=== PATIENT | female | born 1990 | race Hispanic/Latino ===

== ENCOUNTER 2024-06-18 22:20 | Emergency (ER) | payer OTHER ==
--- OUTSIDE RECORDS SUMMARY | 2024-06-18 22:23 | XMS REPORT | Continuity of Care Document ---
Author Name Unknown Address [address] [facility] [address] [place] [address] [facility] Address [address] [facility]. [address] [place] [address] Care Team Providers Care Quality Control Projectionist Name Role Phone Zachary Salmeron Md Primary Care Physician MANDI SAEED Attending Clinician Unav ADELAIDA Rushing Attending Clinician Unavailable DENISE WOODRUFF Attending Clinician Unavail able EDEN BLANK Attending Clinician Unavailable JORDY PHILLIPS Attending Clinician Unavailable LAB45 Attending Clinician Unavailable ANAMARIA LAZO Attending Clinician Unavailable LAB03 Attending Clinician Unavailable LAB90 Attending Clinician Unavailable KELLI PINEDA MEDICAL Attending Clinicia felicity Unavailable CARLY LICONA Attending Clinician Unavailable LORETTA ERICKSON Attending Clinician Unavailable Payers Payer Name Policy Type Policy Number Effective Date Expirati on Date Source [facility] [place] [facility] [id number] 2022 00:00:00 [employer] MP [facility] O [facility] 94 ON 9 [id number] 2023 00:00:00 Social History Social Habit Start Date Stop Date Quantity Comments Source Sexual orientation Mora Sarkar - External ASSERTION Not Kelli Sarkar - External Alcoholic beverage intake 2024-02-08 00:00:00 2024-02-08 00:00:00 Lifetime non-drinker (finding) Kelli Sarkar - External History of Social function 2023-12-15 00:00:00 2023-12-15 00:00:00 Kelli Sarkar - External Tobacco use and exposure 2023-10-30 00:00:00 2023-10-30 00:00:00 Smokeless tobacco non-user Kelli Sarkar - External Sex 2023-10-27 15:18:24 2023-10-27 15:18:24 Female (finding) Kelli Sarkar - External Alcohol intake 2022-07-04 00:00:00 2022-07-04 00:00:00 Lifetime non-drinker (finding) [facility] Sex assigned at 1990 00:00:00 1990 00:00:00 Kelli Sarkar - External Smoking Status Start Date Stop Date Source Never smoked tobacco Kelli Sarkar - External Medications Ordered Medication Name Filled Medication Name Start Date Stop Date Current Medication? Ordering Clinician Indication Dosage Frequency Signature (SIG) Comments Components Source IRON, FERROUS SULFATE, OR 2023-02 11:14: 09 Yes 65mg Take 65 mg by mouth. Kelli kruger Amoxicillin -Pot Clavulanate 875-125 MG oral Tablet 2023-02 00:00: 00 Yes [id number] 1{tbl} Q.5D Take 1 tablet by mouth 2 times daily. Kelli Mendoza l IRON, FERROUS SULFATE, OR 2023-02 11:03: 41 Yes 65mg Take 65 mg by mouth. Kelli kruger methIMAzole 10 MG oral Tablet 11-01 00:00: 00 Yes [id number] 40mg QD Take 4 tablets (40 mg total) by mouth daily. Kelli kruger Metoprolol Tartrate (LOPRESSOR) 25 MG oral Tablet 10-29 00:00: 00 Yes [id number] 25mg Q.5D Take 1 tablet (25 mg total) by mouth 2 times daily. Kelli kruger clindamycin (Cleocin) 300 MG capsule 07-04 00:00: 00 07-12 04:59 :00 No [id number] 300mg Q.25D Take 1 capsule (300 mg total) by mouth in the morning and 1 capsule (300 mg total) at noon and 1 capsule (300 mg total) in the evening and 1 capsule (300 mg total) before bedtime. Do all this for 7 days. [facility] Vital Signs Vital Name Observation Time Observation Value Comments S ource Oxygen saturation in Arterial blood by Pulse oximetry 2024-02-08 17:09:00 98 /min Kelli Seybo ld - External Systolic blood pressure 2024-02-08 17:09:00 126 mm[Hg] Kelli Seybo ld - External Diastolic blood pressure 2024-02-08 17:09:00 82 mm[Hg] Kelli Seybo ld - External Heart rate 2024-02-08 17:09:00 86 /min Kelse y Seybold - External Body temperature 2024-02-08 17:09:00 36.72 Berenice Kelli Seybold - External Respiratory rate 2024-02-08 17:09:00 18 /min Kelli Seybold - External Body height 2024-02-08 17:09:00 162.6 cm Radha ey Seybold - External Body weight 2024-02-08 17:09:00 86.637 kg Radha ey Seybold - External BMI 2024-02-08 17:09:00 32.79 kg/m2 Radha ey Seybold - External Systolic blood pressure 2024-01-05 17:01:00 132 mm[Hg] Kelli Seybo ld - External Diastolic blood pressure 2024-01-05 17:01:00 80 mm[Hg] Kelli Seybo ld - External Heart rate 2024-01-05 17:01:00 88 /min Kelse y Seybold - External Respiratory rate 2024-01-05 17:01:00 16 /min Kelli Seybold - External Body height 2024-01-05 17:01:00 162.6 cm Radha ey Seybold - External Body weight 2024-01-05 17:01:00 88.451 kg Radha ey Seybold - External BMI 2024-01-05 17:01:00 33.47 kg/m2 Radha ey Seybold - External Systolic blood pressure 2023-12-15 16:07:00 120 mm[Hg] Kelli Seybo ld - External Diastolic blood pressure 2023-12-15 16:07:00 70 mm[Hg] Kelli Seybo ld - External Heart rate 2023-12-15 16:07:00 108 /min Kelse y Seybold - External Body temperature 2023-12-15 16:07:00 36.72 Berenice Kelli Seybold - External Respiratory rate 2023-12-15 16:07:00 24 /min Kelli Seybold - External Body height 2023-12-15 16:07:00 162.6 cm Radha ey Seybold - External Body weight 2023-12-15 16:07:00 87.091 kg Radha ey Seybold - External BMI 2023-12-15 16:07:00 32.96 kg/m2 Radha ey Seybold - External Systolic blood pressure 2023-11-02 20:31:00 126 mm[Hg] Kelli Seybo ld - External Diastolic blood pressure 2023-11-02 20:31:00 78 mm[Hg] Kelli Seybo ld - External Heart rate 2023-11-02 20:31:00 88 /min Endyse y Seybold - External Respiratory rate 2023-11-02 20:31:00 16 /min Kelli Seybold - External Body height 2023-11-02 20:31:00 162.6 cm Radha ey Seybold - External Body weight 2023-11-02 20:31:00 86.909 kg Radha ey Seybold - External BMI 2023-11-02 20:31:00 32.89 kg/m2 Radha ey Seybold - External Systolic blood pressure 2023-10-30 20:18:00 150 mm[Hg] Kelli Seybo ld - External Diastolic blood pressure 2023-10-30 20:18:00 80 mm[Hg] Kelli Seybo ld - External Heart rate 2023-10-30 20:18:00 124 /min Endyse y Seybold - External Body temperature 2023-10-30 20:18:00 36.78 Berenice Kelli Seybold - External Respiratory rate 2023-10-30 20:18:00 24 /min Kelli Seybold - External Body height 2023-10-30 20:18:00 162.6 cm Radha ey Seybold - External Body weight 2023-10-30 20:18:00 86.637 kg Radha ey Seybold - External BMI 2023-10-30 20:18:00 32.79 kg/m2 Radha ey Seybold - External Oxygen saturation in Arterial blood by Pulse oximetry 2023-10-30 20:18:00 99 /min Kelli Vail ld - External Systolic blood pressure 2022-07-04 15:21:00 132 mm[Hg] [facility] Diastolic blood pressure 2022-07-04 15:21:00 87 mm[Hg] [facility] Heart rate 2022-07-04 15:21:00 81 /min [facility] Body height 2022-07-04 15:21:00 160 cm [facility] Body weight 2022-07-04 15:21:00 83.28 kg [facility] BMI 2022-07-04 15:21:00 32.52 kg/m2 [facility] Encounters Start Date/Time End Date/Time Encounter Type Admission Type Attending Clinicians Care Facility Care Department Encounter ID Source 2022-07-04 09:46:00 Outpatient [facility] [id number] [facility] 2022-07-03 10:45:02 Outpatient [facility] [id number] [facility] 2024-04-12 10:30:00 2024-04-12 10:30:00 Outpatient MANDI SYED [id number] [facility] 2024-04-07 13:00:00 2024-04-07 13:00:00 Outpatient ADELAIDA FERNANDO [id number] [facility] 2024-03-24 10:45:00 2024-03-24 10:45:00 Outpatient MANDI SYED [id number] [facility] 2024-03-10 09:45:00 2024-03-10 09:45:00 Outpatient [facility] [id number] [facility] 2024-02-08 11:30:00 2024-02-08 11:30:00 Outpatient DENISE WOODRUFF [id number] [facility] 2024-02-08 11:00:00 2024-02-08 11:00:00 Outpatient EDEN BLANK [id number] [facility] 2024-02-08 00:00:00 2024-02-08 00:00:00 Outpatient EDEN BLANK KELLI GRAJEDA [id number] [facility] 2024-02-02 12:30:00 2024-02-02 12:30:00 Outpatient KELLI GRAJEDA [id number] [facility] 2024-02-01 00:00:00 2024-02-01 00:00:00 Outpatient JORDY PHILLIPS [id number] [facility] 2024-01-28 11:00:00 2024-01-28 11:00:00 Outpatient KELLI GRAJEDA [id number] [facility] 2024-01-05 11:15:00 2024-01-05 11:15:00 Outpatient RAMACHMANDI MIKE [id number] [facility] 2023-12-17 00:00:00 2023-12-17 00:00:00 Outpatient RAMMANDI PEARSON [id number] [facility] 2023-12-15 12:15:00 2023-12-15 12:15:00 Outpatient MAEVEKurt GRAJEDA [id number] [facility] 2023-12-15 11:30:00 2023-12-15 11:30:00 Outpatient JORDY PHILLIPS [id number] [facility] 2023-12-15 10:30:00 2023-12-15 10:30:00 Outpatient JORDY PHILLIPS [id number] [facility] 2023-12-10 14:45:00 2023-12-10 14:45:00 Outpatient RAMMANDI PEARSON [id number] [facility] 2023-12-10 00:00:00 2023-12-10 00:00:00 Outpatient JORDY PHILLIPS [id number] [facility] 2023-12-07 09:15:00 2023-12-07 09:15:00 Outpatient MANDI SYED [id number] [facility] 2023-11-24 13:30:00 2023-11-24 13:30:00 Outpatient ANAMARIA LAZO KELLI KELLI [id number] [facility] 2023-11-18 08:00:00 2023-11-18 08:00:00 Outpatient ANAMARIA LAZO KELLI KELLI [id number] [facility] 2023-11-13 15:15:00 2023-11-13 15:15:00 Outpatient LAB03 KELLI GRAJEDA [id number] [facility] 2023-11-13 14:30:00 2023-11-13 14:30:00 Outpatient KELLI GRAJEDA [id number] [facility] 2023-11-13 00:00:00 2023-11-13 00:00:00 Outpatient JORDY PHILLIPS [id number] [facility] 2023-11-06 08:35:00 2023-11-06 08:35:00 Outpatient LAB90 KELLI GRAJEDA [id number] [facility] 2023-11-06 00:00:00 2023-11-06 00:00:00 Outpatient KELLI PINEDA [id number] [facility] 2023-11-04 13:15:00 2023-11-04 13:15:00 Outpatient KELLI GRAJEDA [id number] [facility] 2023-11-03 14:15:00 2023-11-03 14:15:00 Outpatient KELLI GRAJEDA [id number] [facility] 2023-11-03 08:45:00 2023-11-03 08:45:00 Outpatient LAB90 KELLI GRAJEDA [id number] [facility] 2023-11-03 00:00:00 2023-11-03 00:00:00 Outpatient JORDY PHILLIPS [id number] [facility] 2023-11-02 15:30:00 2023-11-02 15:30:00 Outpatient MANDI SYED [id number] [facility] 2023-10-30 16:20:00 2023-10-30 16:20:00 Outpatient LAB45 KELLI GRAJEDA [id number] [facility] 2023-10-30 15:30:00 2023-10-30 15:30:00 Outpatient JORDY PHILLIPS [id number] [facility] 2023-10-27 16:30:00 2023-10-27 16:30:00 Outpatient CARLY LICONA KELLI GRAJEDA [id number] [facility] 2023-07-09 11:45:00 2023-07-09 11:45:00 Outpatient [facility] [id number] [facility] 2023-06-25 11:45:00 2023-06-25 11:45:00 Outpatient [facility] [id number] [facility] 2022-08-05 09:10:00 2022-08-05 09:10:00 Outpatient [facility] [id number] [facility] 2022-07-04 10:10:00 2022-07-04 10:54:32 Office Visit [facility] [address] [facility] [id number] [facility] Notes Date/Time Note Provider Source 2024-02-08 11:14:10 Chief Complaint Patient presents with Follow-up Possible tooth infection. Left lower side is swollen.Dentist told her they could not see her until she gets antibiotic Alya Wilson LVN [facility] 2024-01-05 11:05:56 Chief Complaint Patient presents with Follow-up Thyroid Problem Anne Harrington MA II [facility] 2023-12-15 11:10:27 Chief Complaint Patient presents with Follow-Up Visit [facility] 2023-11-02 15:32:13 Chief Complaint Patient presents with Consultation Thyroid Problem Anne Harrington MA II [facility] 2023-10-30 15:20:57 Chief Complaint Patient presents with Palpitations SOB [facility]
[2024-06-18 23:08] LABS: Absolute Eosinophils 0.1 K/uL (0-0.5); Absolute Monocytes 0.4 K/uL (0.1-1.3); Absolute Neutrophil 4.3 K/uL (1.8-8.0); Basophils % 0.7 % (0-1.3); Eosinophils % 1.3 % (0-4.4); Hematocrit 35.2 % (36.0-45.0); Hemoglobin 12.5 g/dL (12.0-15.0); Lymphocytes % 29.1 % (15.3-44.8); MCHC 35.6 g/dL (32.0-36.0); MCV 81.5 fL (80-100); MPV 6.8 fL (7.6-11.3); Monocytes % 5.8 % (3.3-12.3); Neutrophils % 63.1 % (41.7-73.7); Platelets 294 thou/uL (152-406); RBC Red Blood Cell Count 4.32 M/uL (3.86-4.86); Red Cell Distribution Width 13.2 % (12.1-15.2)
[2024-06-18 23:19] LABS: Specific Gravity > 1.030 (1.005-1.030); Urine Bacteria <20 /HPF (<20); Urine Bilirubin NEGATIVE (Negative); Urine Blood Negative (Negative); Urine Clarity Clear (Clear); Urine Color Yellow (Yellow); Urine Culture Reflex Order NOT NEEDED; Urine Glucose NEGATIVE (Negative); Urine Ketones NEGATIVE (Negative); Urine Microscopic Reflex YN ORDER UMIC; Urine Mucus 3+ /HPF (None Seen); Urine Nitrite NEGATIVE (Negative); Urine Protein TRACE (Negative); Urine RBC <5 /HPF (None Seen); Urine Urobilinogen 2+ (Normal); Urine WBC <5 /HPF (<5); Urine pH 6.5 (5.0-7.0)
[2024-06-18 23:38] LABS: Anion Gap 7.5 mEq/L (5.0-15.0); BUN Blood Urea Nitrogen 12 mg/dL (7-18); Bicarbonate 26 mEq/L (21-32); Glomerular Filtration Rate 118 ml/min (=/>90); Glucose Level 108 mg/dL (74-106); Potassium 3.5 mEq/L (3.5-5.1); Sodium Level 138 mEq/L (136-145); Troponin High Sensitivity 4.7 pg/mL (<58.9)
[2024-06-18 23:41] LABS: Thyroid Stimulating Hormone < 0.005 uIU/mL (0.358-3.740)
--- NOTE | 2024-06-19 00:31 | ER ---
Nurse's Notes [facility] Name: Suzanna Bonilla Age: 33 yrs Sex: Female : 1990 Arrival Date: 06/18/2024 Time: 22:20 Bed 13 Private MD: Diagnosis: Abnormal results of thyroid function studies Presentation: 06/18 22:58 Chief complaint: Patient states: chest pressure and tingling all over that started last cp4 night. Coronavirus screen: Client denies travel out of the [place] in the last 14 days. At this time, the client does not indicate any symptoms associated with coronavirus-19. Ebola Screen: Patient negative for fever greater than or equal to 101.5 degrees Fahrenheit, and additional compatible Ebola Virus Disease symptoms Patient denies exposure to infectious person. Patient denies travel to an Ebola-affected area in the 21 days before illness onset. No symptoms or risks identified at this time. Initial Sepsis Screen: Does the patient meet any 2 criteria? No. Patient's initial sepsis screen is negative. Does the patient have a suspected source of infection? No. Patient's initial sepsis screen is negative. Risk Assessment: Do you want to hurt yourself or someone else? Patient reports no desire to harm self or others. Onset of symptoms was June 17, 2024. 22:58 Method Of Arrival: Ambulatory cp4 22:58 Acuity: ARTHUR 3 cp4 Triage Assessment: 23:00 General: Appears in no apparent distress. Behavior is calm, cooperative, appropriate cp4 for age. Pain: Denies pain. EENT: No signs and/or symptoms were reported regarding the EENT system. Neuro: Level of Consciousness is awake, alert, obeys commands, Oriented to person, place, time, situation. Cardiovascular: Patient's skin is warm and dry. Rhythm is sinus rhythm. Respiratory: Airway is patent Respiratory effort is even, unlabored. GI: No signs and/or symptoms were reported involving the gastrointestinal system. : No signs and/or symptoms were reported regarding the genitourinary system. Derm: No signs and/or symptoms reported regarding the dermatologic system. Musculoskeletal: No signs and/or symptoms reported regarding the musculoskeletal system. DISPLAY DIRECTOR: 23:00 Not cp4 Historical: - Allergies: 23:00 No Known Allergies; cp4 - Immunization history:: Adult Immunizations up to date. - Infectious Disease History:: Denies. - Social history:: Smoking status: Patient denies any tobacco usage or history of. Screenin:03 [facility] ED Fall Risk Assessment (Adult) History of falling in the last 3 months, cp4 including since admission No falls in past 3 months (0 pts) Confusion or Disorientation No (0 pts) Intoxicated or Sedated No (0 pts) Impaired Gait No (0 pts) Mobility Assist Device Used No (0 pt) Altered Elimination No (0 pt) Score/Fall Risk Level 0 - 2 = Low Risk Oriented to surroundings, Maintained a safe environment, Assessed \T\ reinforced patient's understanding of fall precautions, Hourly rounding (assess needs \T\ fall precautionary measures) done. Abuse screen: Denies threats or abuse. Denies injuries from another. Nutritional screening: No deficits noted. Tuberculosis screening: No symptoms or risk factors identified. Assessment: 23:03 Pain: Pain does not radiate. Pain began gradually. cp4 23:03 Pain: Complains of pain in chest Pain currently is 7 out of 10 on a pain scale. cp4 Vital Signs: 22:58 BP 157 / 98; Pulse 88; Resp 18; Temp 98.4; Pulse Ox 99% ; Pain 0/10; cp4 06/19 00:53 BP 145 / 101; Pulse 84; Resp 18; Pulse Ox 100% ; cp4 04 22:58 Pain Scale: Adult cp4 ED Course: 06/18 22:24 Patient arrived in ED. gm2 22:37 Ruslan Lewis FNP-C is [facility]. dr5 22:37 Erick Mayer MD is Attending Physician. dr5 22:57 Larissa De Leon is Primary Nurse. cp4 23:00 Triage completed. cp4 23:00 Arm band placed on right wrist. Patient placed in waiting room. cp4 23:02 Basic Metabolic Panel Sent. vk 23:02 CBC with Diff Sent. vk 23:02 Magnesium Sent. vk 23:02 Troponin HS Sent. vk 23:02 Initial lab(s) drawn, by me, sent to lab. Urine collected: clean catch specimen, clear. vk Inserted saline lock: 20 gauge in left antecubital area, using aseptic technique. Blood collected. Flushed with 10 mL NS. 23:03 No provider procedures requiring assistance completed. Patient maintains SpO2 cp4 saturation greater than 95% on room air. 23:03 Bed in low position. Call light in reach. Client placed on continuous cardiac and pulse cp4 oximetry monitoring. NIBP monitoring applied. pit crane operator on. Pulse ox on. NIBP on. 23:18 Chest Pa And Lat (2 Views) XRAY In Process Unspecified. EDMS 06/19 00:53 intact, bleeding controlled, No redness/swelling at site. Pressure dressing applied. cp4 00:53 Provided Education on: hyperthryroidism. cp4 Administered Medications: No medications were administered Medication: 06/18 23:03 VIS not applicable for this client. cp4 Outcome: 06/19 00:30 Discharge ordered by . dr5 00:53 Discharged to home ambulatory, cp4 00:53 Condition: stable 00:53 Discharge instructions given to patient, family, Instructed on discharge instructions, follow up and referral plans. Demonstrated understanding of instructions, follow-up care, 00:54 Patient left the ED. cp4 Signatures: Dispatcher [employer] EDCA Larissa De Leon cp4 Antonietta Zepeda gm2 Chio Watson Dustin, ORDER RUNNER-C ORDER RUNNER-Cdr5
--- NOTE | 2024-06-19 00:31 | EDPHYS ---
Physician Documentation [facility] Manuel Name: Suzanna Bonilla Age: 33 yrs Sex: Female : 1990 Arrival Date: 06/18/2024 Time: 22:20 Bed 13 Private MD: ED Physician Erick Mayer HPI: 06/19 00:11 This 33 yrs old Female presents to ER via Ambulatory with complaints of Chest dr5 Tightness, Numbness Of Arm. 00:11 Onset: The symptoms/episode began/occurred acutely. Patient is a 33-year-old female dr5 with history of hypothyroidism coming in with numbness and tingling has been going on for the past 3-4 months. Patient reports she is taking methimazole 10mg daily. Patient has management professionals appointment this next week. Pt denies abdominal pain, shortness of breath, fever, nausea, vomiting, constipation, or diarrhea.. DIRECTOR TALENT: 06/18 23:00 Not cp4 Historical: - Allergies: 23:00 No Known Allergies; cp4 - Immunization history:: Adult Immunizations up to date. - Infectious Disease History:: Denies. - Social history:: Smoking status: Patient denies any tobacco usage or history of. ROS: 06/19 00:11 Constitutional: as per hpi dr5 Exam: 00:11 Constitutional: This is a well developed, well nourished patient who is awake, alert, dr5 and in no acute distress. Head/Face: Normocephalic, atraumatic. 00:11 Chest/axilla: Normal chest wall appearance and motion. Nontender with no deformity. No lesions are appreciated. Cardiovascular: Regular rate and rhythm with a normal S1 and S2. Normal PMI, no JVD. No pulse deficits. Respiratory: Lungs have equal breath sounds bilaterally, clear to auscultation. No rales, rhonchi or wheezes noted. No increased work of breathing, no retractions or nasal flaring. Back: No spinal tenderness. No costovertebral tenderness. Full range of motion. Skin: Warm, dry with normal turgor. Normal color with no rashes, no lesions, and no evidence of cellulitis. Neuro: Awake and alert, GCS 15, oriented to person, place, time, and situation. Cranial nerves II-XII grossly intact. Motor strength 5/5 in all extremities. Sensory grossly intact. Cerebellar exam normal. Normal gait. 00:11 Eyes: Extraocular movements: intact throughout, Vital Signs: 06/18 22:58 BP 157 / 98; Pulse 88; Resp 18; Temp 98.4; Pulse Ox 99% ; Pain 0/10; cp4 06/19 00:53 BP 145 / 101; Pulse 84; Resp 18; Pulse Ox 100% ; cp4 06/18 22:58 Pain Scale: Adult cp4 MDM: 06/18 22:36 Differential diagnosis: viral Infection, bacterial infection, Hypothyroidism, dr5 Hyperthyroidism, Electrolyte Abnormality. Data reviewed: vital signs, nurses notes, lab test result(s), radiologic studies. Care significantly affected by the following chronic conditions: Hyperthyroidism. Care significantly affected by the following Social Determinants of Health: Poor access to healthcare and/or lack of insurance, Poor access to transportation, Problems related to employment. Counseling: I had a detailed discussion with the patient and/or guardian regarding the historical points, exam findings, and any diagnostic results supporting the discharge/admit diagnosis, the presence of at least one elevated blood pressure reading (>120/80) during this emergency department visit, lab results, the need for outpatient follow up, for definitive care, a family practitioner, Endocrinology, to return to the emergency department if symptoms worsen or persist or if there are any questions or concerns that arise at home. ED course: Patient has endocrinology appointment next week as scheduled. Recommended patient continue taking medications as prescribed. Patient does not have fever, not tachycardic, and does not appear to be in thyroid storm. Strict ER precautions given to patient. All labs reviewed with patient and labs printed so patient can take to appointment. All questions answered. Patient will return for any worsening concerns.. 22:38 Medical Screening Exam initiated 06/18 22:38 Order name: Basic Metabolic Panel; Complete Time: 23:45 [facility] 06/18 22:38 Order name: CBC with Diff; Complete Time: 23:27 [facility] 06/18 22:38 Order name: Magnesium; Complete Time: 23:45 [facility] 06/18 22:38 Order name: Troponin HS; Complete Time: 23:45 [facility] 06/18 22:38 Order name: Urinalysis w/ reflexes; Complete Time: 23:27 [facility] 06/18 23:15 Order name: Thyroid Stimulating Hormone; Complete Time: 23:45 EDMS 06/18 22:38 Order name: Chest Pa And Lat (2 Views) XRAY dr5 06/18 22:38 Order name: EKG; Complete Time: :38 dr5 06/18 22:38 Order name: Cardiac monitoring; Complete Time: : dr5 06/18 22:38 Order name: EKG - Nurse/Tech; Complete Time: 23: dr5 06/18 22:38 Order name: IV Saline Lock; Complete Time: : dr5 06/18 22:38 Order name: Labs collected and sent; Complete Time: : dr5 06/18 22:38 Order name: O2 Per Protocol; Complete Time: : dr5 06/18 22:38 Order name: O2 Sat Monitoring; Complete Time: : dr5 EC:36 Rate is 90 beats/min. Rhythm is regular. QRS [place] is Normal. VT interval is normal at dr5 136 msec. QRS interval is normal at 80 msec. QT interval is normal at 348 msec. Administered Medications: No medications were administered Disposition: 06/19 00:57 Co-signature as Attending Physician, Erick Mayer MD I reviewed the patient's care rt provided by the Advanced Practice Provider and agree with the diagnosis and treatment plan. Disposition Summary: 06/19/24 00:30 Discharge Ordered Notes: Location: Home dr5 Condition: Stable dr5 Diagnosis - Abnormal results of thyroid function studies dr5 Followup: dr5 - With: Emergency Department - When: As needed - Reason: Worsening of condition Followup: dr5 - With: Private Physician - When: 1 - 2 days - Reason: Recheck today's complaints, Continuance of care, Re-evaluation by your physician Discharge Instructions: - Discharge Summary Sheet dr5 - Hyperthyroidism dr5 Forms: - Medication Reconciliation Form dr5 - Patient Portal Instructions dr5 - Leadership Thank You Letter dr5 Signatures: Dispatcher [employer] [facility] Erick Mayer MD MD rt Larissa De Leon cp4 Ruslan Lewis, CAREER DEVELOPMENT ENGINEER-C CAREER DEVELOPMENT ENGINEER-Cdr5 Corrections: (The following items were deleted from the chart) 06/18 23:15 23:04 THYROID STIMULAT HORMONE+C.LAB.BRZ ordered. [facility] 06/19 01:05 00:11 Patient is a 33-year-old female with history of hypothyroidism coming in with dr5 numbness and tingling has been going on for the past cold months. Patient reports she is taking methimazole 10mg daily. Patient has management professionals appointment this next week. Pt denies abdominal pain, shortness of breath, fever, nausea, vomiting, constipation, or diarrhea.. dr5
--- NOTE | 2024-06-19 02:23 | RAD REPORT ---
EXAM: Chest Pa And Lat (2 Views) HISTORY: 33 years Female CHEST PAIN COMPARISON: None. FINDINGS: LUNGS/PLEURA: The lungs are clear. No pleural effusions or pneumothorax. No pulmonary edema. CARDIAC/MEDIASTINUM: The cardiac silhouette is within normal limits. UPPER ABDOMEN: No significant abnormality. BONES: No acute abnormality. LINES/TUBES/OTHER: N/A IMPRESSION: No evidence of acute cardiopulmonary disease.
--- NOTE | 2024-06-20 12:11 | EKG ---
Test Date: 2024-06-18 Test Time: 22:36:24 Machine Shop Supervisor: LIZ MEASUREMENT RESULTS: Intervals: Rate: 90 NJ: 136 QRSD: 80 QT: 348 QTc: 425 Evant: P: 43 NJ: 136 QRS: 37 T: 47 INTERPRETIVE STATEMENTS: Normal sinus rhythm Normal ECG No previous ECG available for comparison Electronically Signed On 06-20-24 12:07:52 CDT by Ryland Breaux
[2024-06-21 00:55] VITALS: TEMP 98.4
[2024-06-21 00:57] VITALS: BP 145/101; O2SAT 100
== END 2024-06-19 00:54 | disposition home or self-care (01) ==
LOC: ER 22:20
DX: R94.6 Abnormal results of thyroid function studies (principal)
CPT/HCPCS: 36415; 71046; 80048; 81001; 83735; 84443; 84484; 85025; 93005; 99284